=== PATIENT | male | born 1990 | race American Indian/Alaskan Native ===

== ENCOUNTER 2020-03-27 23:38 | Emergency (ER) | payer SELFPAY ==
[2020-03-28] MEDS ORDERED: ACETAMINOPHEN 325 MG TAB PO ONE (00:37)
[2020-03-28] MEDS ORDERED: ACETAMINOPHEN 325 MG TAB ONE (00:41)
[2020-03-28 01:15] LABS: Basophils # (Auto) 0.1 K/mm3 (0.0-0.1); Basophils % (Auto) 0.4 % (0.0-1.8); Eosinophils # (Auto) 0.2 K/mm3 (0.0-0.4); Eosinophils % (Auto) 1.5 % (0.0-4.3); Hematocrit 42.1 % (35.5-45.6); Hemoglobin 14.3 gm/dl (11.8-15.2); Lymphocytes # (Auto) 1.9 K/mm3 (1.2-5.4); Lymphocytes % (Auto) 11.9 % (13.4-35.0); Mean Corpuscular HGB Conc 34 % (32-34); Mean Corpuscular Volume 87 fl (84-94); Monocytes # (Auto) 1.4 K/mm3 (0.0-0.8); Monocytes % (Auto) 9.2 % (0.0-7.3); Platelet Count 327 K/mm3 (140-440); Red Blood Count 4.83 M/mm3 (3.65-5.03); Red Cell Distribution Width 13.4 % (13.2-15.2)
[2020-03-28 01:35] LABS: BUN/Creatinine Ratio 6; Blood Urea Nitrogen 7 mg/dL (9-20); Calcium 9.4 mg/dL (8.4-10.2); Hemolysis Index 2
[2020-03-28 01:39] LABS: Alanine Aminotransferase 30 units/L (7-56); Albumin 4.3 g/dL (3.9-5)
[2020-03-28 01:44] LABS: Bilirubin,Direct < 0.2 mg/dL (0-0.2)
--- NOTE | 2020-03-28 02:28 | XRay Report ---
CHEST PA AND LATERAL VIEWS INDICATION: cough and fever. COMPARISON: None FINDINGS: Support devices: None Heart: Normal Lungs/Pleura: No acute pulmonary or pleural findings. IMPRESSION: 1. No significant abnormality. Signer Name: Andres Ash MD Signed: 03/28/2020 2:24 AM Workstation Name: [id number]
[2020-03-28] MEDS ORDERED: dexAMETHasone 20 MG/5 ML VIAL IV ONE (03:19)
[2020-03-28] MEDS ORDERED: KETOROLAC 30 MG/1 ML INJ IV ONE (03:19)
[2020-03-28] MEDS ORDERED: SODIUM CHLORIDE 0.9% 1000 ML 1,000 ML IV ONE (03:20)
[2020-03-28 04:46] VITALS: BP 135/75
--- NOTE | 2020-03-28 05:19 | Emergency Department Report ---
ED General Adult HPI - General Chief complaint: Fever Stated complaint: THROAT/HEAD PAIN Source: patient Mode of arrival: Ambulatory Limitations: No Limitations - History of Present Illness Initial comments: Patient is a 30-year-old -[place]i male with past medical history of asthma who presents to the ED with complaint of acute onset persistent nasal and sinus congestion, severe sore throat, dysphagia, persistent dry cough with diffuse body aches and pains for the last 1 week. Patient also complained of lack of appetite, fever and chills intermittently for the last 2 days. Patient states that he has not been able to eat anything especially in the last 24 hours because of persistent severe sore throat and dysphagia. Patient states that no one else at home or at work has had similar symptoms. Patient denies dizziness, syncope, shortness of breath, chest pain, abdominal pain, nausea, vomiting, diarrhea, dysuria, urinary frequency and urgency, seizures, change in vision or testicular pain. MD Complaint: Sore throat; dysphagia, fever and chills, dry cough -: Sudden, week(s) (1) Location: mouth, chest Radiation: non-radiation Severity scale (0 -10): 10 Quality: aching, sharp Consistency: constant Improves with: none Worsens with: none Associated Symptoms: denies other symptoms, cough, fever/chills, headaches, loss of appetite, malaise. denies: confusion, chest pain, diaphoresis, nausea/vomiting, rash, seizure, shortness of breath, syncope, weakness, other Treatments Prior to Arrival: none - Related Data Previous Rx's Medication Instructions Recorded Last Taken Type Amoxicillin/Potassium Clav 1 each PO Q12H #20 tablet 03/28/20 Unknown Rx [Augmentin 875-125 Tablet] Benzonatate [Tessalon Perles] 100 mg PO Q8HR #30 capsule 03/28/20 Unknown Rx Ibuprofen [Motrin] 800 mg PO Q8HR PRN #30 tablet 03/28/20 Unknown Rx Lidocaine Viscous 2% 10 ml PO Q6H PRN #120 ml 03/28/20 Unknown Rx predniSONE [Deltasone] 40 mg PO QDAY #12 tab 03/28/20 Unknown Rx Allergies Allergy/AdvReac Type Severity Reaction Status Date / Time No Known Allergies Allergy Unverified 03/28/20 00:36 ED Review of Systems ROS: Stated complaint: THROAT/HEAD PAIN Other details as noted in HPI Constitutional: chills, fever, malaise Eyes: denies: eye pain, eye discharge, vision change ENT: throat pain, congestion. denies: ear pain Respiratory: cough. denies: shortness of breath, SOB with exertion, wheezing Cardiovascular: denies: chest pain, palpitations Endocrine: no symptoms reported Gastrointestinal: denies: abdominal pain, nausea, vomiting, diarrhea Genitourinary: denies: urgency, dysuria Musculoskeletal: arthralgia, myalgia. denies: back pain, joint swelling Skin: denies: rash, lesions Neurological: headache. denies: weakness, paresthesias Psychiatric: denies: anxiety, depression Hematological/Lymphatic: denies: easy bleeding, easy bruising ED Past Medical Hx - Past Medical History Previous Medical History?: Yes Hx Asthma: Yes - Surgical History Past Surgical History?: No - Social History Smoking Status: Current Every Day Smoker Substance Use Type: None - Medications Home Medications: Home Medications Medication Instructions Recorded Confirmed Last Taken Type Amoxicillin/Potassium Clav 1 each PO Q12H #20 tablet 03/28/20 Unknown Rx [Augmentin 875-125 Tablet] Benzonatate [Tessalon Perles] 100 mg PO Q8HR #30 capsule 03/28/20 Unknown Rx Ibuprofen [Motrin] 800 mg PO Q8HR PRN #30 tablet 03/28/20 Unknown Rx Lidocaine Viscous 2% 10 ml PO Q6H PRN #120 ml 03/28/20 Unknown Rx predniSONE [Deltasone] 40 mg PO QDAY #12 tab 03/28/20 Unknown Rx ED Physical Exam - General Limitations: No Limitations General appearance: alert, in no apparent distress - Head Head exam: Present: atraumatic, normocephalic, normal inspection - Eye Eye exam: Present: normal appearance, PERRL, EOMI Pupils: Present: normal accommodation - ENT ENT exam: Present: mucous membranes moist, TM's normal bilaterally, normal external ear exam, other (Erythematous oropharynx and tonsils with mild exudates; uvula is midline and no sign of peritonsillar abscess) - Neck Neck exam: Present: normal inspection, full ROM, lymphadenopathy (Anterior cervical lymphadenopathy) - Respiratory Respiratory exam: Present: normal lung sounds bilaterally. Absent: respiratory distress, wheezes, rales, chest wall tenderness, accessory muscle use, decreased breath sounds - Cardiovascular Cardiovascular Exam: Present: normal rhythm, tachycardia, normal heart sounds. Absent: systolic murmur, diastolic murmur, rubs, gallop - GI/Abdominal GI/Abdominal exam: Present: soft, normal bowel sounds. Absent: distended, tenderness, guarding, rebound, hyperactive bowel sounds, hypoactive bowel sounds - Extremities Exam Extremities exam: Present: normal inspection, full ROM, normal capillary refill - Back Exam Back exam: Present: normal inspection, full ROM. Absent: tenderness, CVA tenderness (L), muscle spasm, vertebral tenderness - Neurological Exam Neurological exam: Present: alert, oriented X3, CN II-XII intact, normal gait, reflexes normal - Psychiatric Psychiatric exam: Present: normal affect, normal mood - Skin Skin exam: Present: warm, dry, intact, normal color. Absent: rash ED Course Vital Signs 03/28/20 03/28/20 00:28 04:45 Temperature 101.2 F H 98.2 F Pulse Rate 103 H 97 H Respiratory 18 18 Rate Blood Pressure 149/93 Blood Pressure 135/75 [Left] O2 Sat by Pulse 99 97 Oximetry ED Medical Decision Making - Lab Data Result diagrams: 03/28/20 00:43 03/28/20 00:43 - Radiology Data Radiology results: report reviewed, image reviewed Findings [facility] [address] [place] [address] XRay Report Signed Patient: DIEUDONNE MONTES MR#: [id number] : 1990 Acct:[id number] Age/Sex: 30 / M ADM Date: 03/27/20 Loc: ED Attending Dr: Ordering Physician: ED MD KEDAR Date of Service: 03/28/20 Procedure(s): XR chest routine 2V Accession Number(s): [id number] cc: ED MD KEDAR Fluoro Time In Minutes: CHEST PA AND LATERAL VIEWS INDICATION: cough and fever. COMPARISON: None FINDINGS: Support devices: None Heart: Normal Lungs/Pleura: No acute pulmonary or pleural findings. IMPRESSION: 1. No significant abnormality. Signer Name: Andres Ash MD Signed: 03/28/2020 2:24 AM Workstation Name: [id number] Transcribed By: TM Dictated By: Andres Ash MD Electronically Authenticated By: Andres Ash MD Signed Date/Time: 10223 DD/ 2 TD/TT: - Medical Decision Making This is a 30-year-old -[place] male with past medical history of asthma who presents to the ED with complaint of acute onset persistent nasal and sinus congestion, severe sore throat, dysphagia, persistent dry cough with diffuse body aches and pains for the last 1 week. Patient also complained of lack of appetite, fever and chills intermittently for the last 2 days. Patient states that he has not been able to eat anything especially in the last 24 hours because of persistent severe sore throat and dysphagia. Patient states that no one else at home or at work has had similar symptoms. In the ED, patient is alert and oriented x3 and is not in distress but tachycardic and febrile in triage. Patient was treated for fever in the ED, and chest x-ray shows no acute cardiopulmonary abnormalities or pneumonitis. Lab test results were reviewed and showed acute leukocytosis of 15,600. The rest of the lab test results were nonactionable and rapid strep test was negative. Patient received Decadron, clindamycin 900 mg IV x1 and pain medications. On reevaluation, patient's pain is well controlled medication. Patient is able to drink and swallow food in the ED with no difficulty, and the hoarseness also resolved. Patient will discharge home on antibiotics, pain medications and steroids and was advised to follow-up with his primary care physician in 7 to 10 days for reevaluation or return to the ED immediately if symptoms get worse. - Differential Diagnosis Strep pharyngitis; bacterial tonsillitis; URI; bronchitis; pneumonia; mono Critical care attestation.: If time is entered above; I have spent that time in minutes in the direct care of this critically ill patient, excluding procedure time. ED Disposition Clinical Impression: Acute bacterial pharyngitis, Acute bacterial tonsillitis, Fever and chills, Acute upper respiratory infection Disposition: DC-01 TO HOME OR SELFCARE Is pt being admited?: No Does the pt Need Aspirin: No Condition: Stable Instructions: Pharyngitis (ED), Upper Respiratory Infection (ED), Tonsillitis (ED) Additional Instructions: Take medication with food, drink plenty of fluids and follow-up with your primary care physician in 7 to 10 days for reevaluation. Return to the ED immediately if symptoms get worse. Prescriptions: Amoxicillin/Potassium Clav [Augmentin 875-125 Tablet] 1 each PO Q12H #20 tablet predniSONE [Deltasone] 40 mg PO QDAY #12 tab Lidocaine Viscous 2% 10 ml PO Q6H PRN #120 ml PRN Reason: Sore Throat Ibuprofen [Motrin] 800 mg PO Q8HR PRN #30 tablet PRN Reason: Pain , Severe (7-10) Benzonatate [Tessalon Perles] 100 mg PO Q8HR #30 capsule Referrals: [facility] [Provider Group] - 3-5 Days Forms: Work/School Release Form(ED) Time of Disposition: 05:16 Print Language: ARABIC
== END 2020-03-28 05:56 | disposition home or self-care (01) ==
LOC: ED 23:38
DX: J06.9 Acute upper respiratory infection, unspecified (principal); R50.9 Fever, unspecified; J03.80 Acute tonsillitis due to other specified organisms; J45.909 Unspecified asthma, uncomplicated; F17.200 Nicotine dependence, unspecified, uncomplicated; Z79.899 Other long term (current) drug therapy
CPT/HCPCS: 36415; 71046; 80048; 80076; 85025; 87116; 87430; 96365; 96375; 99284; J1100; J1885; J7030